=== PATIENT | female | born 1960 | race Caucasian/White ===

== ENCOUNTER → 2017-09-29 | Outpatient (CLI) | payer BC | LOC: COL.RAD 14:45 | DX: M16.12 Unilateral primary osteoarthritis, left hip (principal); M48.02 Spinal stenosis, cervical region ==

== ENCOUNTER 2017-11-09 07:29 | Outpatient (CLI) | payer BC ==
[~2017-11-09] VITALS: Ht 160.1 cm; Wt 63.8 kg
[2017-11-09] MEDS ORDERED: CYMBALTA 60MG60 MG PO (07:52)
[2017-11-09] MEDS ORDERED: NEURONTIN600 MG/TAB PO (07:52)
[2017-11-09] MEDS ORDERED: ZANAFLEX 4MG TAB4 MG PO (07:53)
[2017-11-09] MEDS ORDERED: ULTRAM 50MG TAB50 MG PO (07:54)
[2017-11-09] MEDS ORDERED: DEXILANT30 MG PO (07:54)
[2017-11-09] MEDS ORDERED: ATIVAN 0.50.5 MG/TAB PO (07:55)
[2017-11-09] MEDS ORDERED: MASON NATURAL2000 IU PO (07:56)
[2017-11-09] MEDS ORDERED: MELATONIN5 M1 PO (07:57)
[2017-11-09 08:15] VITALS: BP 127/88; PULSE 89; TEMP 97.6
[2017-11-09] MEDS ORDERED: FLORINEF ACETA0.1 MG PO (10:29)
[2017-11-09 10:32] VITALS: BP 101/82; PULSE 76; TEMP 97.6
[2017-11-09 10:57] VITALS: BP 97/69; PULSE 80
== END 2017-11-09 11:26 | disposition home or self-care (01) ==
LOC: COL.CAR 07:29
DX: R55 Syncope and collapse (principal); F32.9 Major depressive disorder, single episode, unspecified; M79.7 Fibromyalgia; Z90.49 Acquired absence of other specified parts of digestive tract; Z90.710 Acquired absence of both cervix and uterus; Z90.722 Acquired absence of ovaries, bilateral; Z87.891 Personal history of nicotine dependence; Z82.49 Family history of ischemic heart disease and other diseases of the circulatory system

== ENCOUNTER → 2018-03-19 | Outpatient (CLI) | payer BC ==
[~2018-03-19] MED LIST: ATIVAN 0.50.5 MG/TAB PO; CYMBALTA 60MG60 MG PO; DEXILANT30 MG PO; FLORINEF ACETA0.1 MG PO; MASON NATURAL2000 IU PO; MELATONIN5 M1 PO; NEURONTIN600 MG/TAB PO; ULTRAM 50MG TAB50 MG PO; ZANAFLEX 4MG TAB4 MG PO
== END ==
LOC: COL.LAB 11:01
DX: Z01.812 Encounter for preprocedural laboratory examination (principal)

== ENCOUNTER → 2018-04-17 | Outpatient (CLI) | payer BC | LOC: COL.CARD 07:47 | DX: R55 Syncope and collapse (principal) ==

== ENCOUNTER → 2018-12-26 | Outpatient (CLI) | payer BC | LOC: COL.CARD 09:25 | DX: R44.2 Other hallucinations (principal) ==

== ENCOUNTER 2021-08-17 11:26 | Day surgery (SDC) | payer BC ==
[~2021-08-17] VITALS: Ht 160 cm; Wt 63.3 kg
[2021-08-17] MEDS ORDERED: RT ADVAIR 128 DISKUS IH (11:55)
[2021-08-17] MEDS ORDERED: CYMBALTA 60MG60 MG PO (11:56)
[2021-08-17] MEDS ORDERED: CEPHALEXIN500 M1 PO (11:56)
[2021-08-17] MEDS ORDERED: PROAIR HFA0.09 MG/AC IH (11:56)
[2021-08-17] MEDS ORDERED: SINGULAIR 110 MG/TAB PO (11:57)
[2021-08-17] MEDS ORDERED: NEURONTIN600 MG/TAB PO (11:57)
[2021-08-17] MEDS ORDERED: ATIVAN 0.50.5 MG/TAB PO (11:57)
[2021-08-17] MEDS ORDERED: PAMELOR75 MG PO (11:58)
[2021-08-17] MEDS ORDERED: MYRBETR50MG PO (11:58)
[2021-08-17] MEDS ORDERED: PROTONIX 40MG T40 MG PO (11:59)
[2021-08-17] MEDS ORDERED: ZANAFLEX 4MG TAB4 MG PO (11:59)
[2021-08-17] MEDS ORDERED: ULTRAM 50MG TAB50 MG PO (12:00)
--- NOTE | 2021-08-17 12:10 | NUR ---
PT HEART TONES REGULAR, LUNG SOUNDS CTA, BOWEL SOUNDS +X4 QUADS. ALERT AND ORIENTED X3.
--- NOTE | 2021-08-17 12:10 | NUR ---
PT HAD 22G IV IN RIGHT AC FROM RADIOLOGY UPON ADMISSION. IV FLUSHES EASILY WITHOUT COMPLICATION, BUT WILL NOT FLOW WITH GRAVITY ALONE. NEW IV PER MARIANO CANO, STARTED BY ALEXIS IRIZARRY.
[2021-08-17 12:18] VITALS: BP 90/68; PULSE 97; TEMP 97.7
[2021-08-17] MEDS ORDERED: FLOMAX 0.40.4 MG/CAP PO (14:09)
[2021-08-17 14:37] VITALS: BP 116/75; PULSE 85; TEMP 97.2
--- NOTE | 2021-08-17 14:50 | NUR ---
PT UNABLE TO VOID. BLADDER SCAN REVEALS 103 ML IN BLADDER. WATER PROVIDED AND FLUIDS INCREASED.
[2021-08-17 14:52] VITALS: BP 117/74; PULSE 84
[2021-08-17 15:07] VITALS: BP 125/81; PULSE 92
--- NOTE | 2021-08-17 16:10 | NUR ---
1437 PT RETURNED TO BAY 22 VIA CART. ALERT AND ORIENTED. MONITORS ATTACHED, INTERVALS AND ALARMS SET. VSS. PT C/O DISCOMFORT IN PELVIC ARE AND REQUEST TO GET UP TO RESTROOM. PT UNABLE TO VOID. WATER AND CRACKERS PROVIDED, FLUIDS INCREASED. AT BEDSIDE, CALL LIGHT IN REACH. 1452 VSS. TOLERATING FOOD ANDRINK WELL. C/O OF DISCOMFORT, REQUEST MEDICATION. 1507 VSS. PT ALLOWED TO REST AND WILL USE CALL LIGHT WHEN READY FOR RESTROOM. REVIEWED DISCHARGE INSTRUCTIONS AND EDUCATION PACKET, ANSWERED ALL QUESTIONS. 1555 PT REPORTS DECREASE IN DISCOMFORT. UP TO RESTROOM AND ABLE TO VOID. URINE IS LIGHT PINK IN COLOR. EDUCATED PT THAT COLOR SHOULD CONTINUE TO GET [employer] AND WHEN TO CALL PROVIDER. IV REMOVED WITHOUT COMPLICATION. PT ALLOWED TO DRESS. 1610 PT TRANSFERED TO PERSONAL VEHICLE VIA WHEELCHAIR TO BE DRIVEN HOME BY SIGNIFICANT OTHER.
== END 2021-08-17 16:10 | disposition home or self-care (01) ==
LOC: SDCO 11:26 → COL.RAD 11:26 → SDCO 16:10
DX: N13.30 Unspecified hydronephrosis (principal); R10.11 Right upper quadrant pain; R39.15 Urgency of urination; R35.0 Frequency of micturition; N89.9 Noninflammatory disorder of vagina, unspecified; Z87.891 Personal history of nicotine dependence; Z87.440 Personal history of urinary (tract) infections
CPT/HCPCS: C1769; C2617; J0690; J1100; J1885; J2405; J2704; J3010; J7120; Q9967